=== PATIENT | female | born 2005 ===

== ENCOUNTER 2023-09-17 12:40 | Inpatient (IN) | payer MEDICAID, OTHER ==
[~2023-09-17] VITALS: Ht 157.5 cm; Wt 78.0 kg
[2023-09-17] MEDS ORDERED: PROMETHAZINE HCL 25 MG/ML 1ML IV PRN (13:15)
[2023-09-17] MEDS ORDERED: PHISODERM TOP SOLN 240ML BTL TOP PRN (13:15)
[2023-09-17] MEDS ORDERED: DERMOPLAST 60ML BOTTLE TOP PRN (13:15)
[2023-09-17] MEDS ORDERED: LIDOCAINE 2%HCL (LOCAL ANESTH.) INJ 20ML MDV IJ PRN (13:15)
[2023-09-17] MEDS ORDERED: WITCH HAZEL-GLYCERIN PAD TOP PRN (13:15)
[2023-09-17] MEDS ORDERED: PENICILLIN G POT 5MIL/D5 50ML 50 ML IV ONE (13:15)
[2023-09-17 13:47] LABS: Basophils # (auto) 0 10 ^3/uL (0-0.2); Basophils % (auto) 0.1 % (0.0-2.0); Eosinophils # (auto) 0.1 10 ^3/uL (0-0.8); Eosinophils % (auto) 0.9 % (0.0-7.0); Hematocrit 37.6 % (36.0-46.0); Hemoglobin 12.9 g/dL (12.2-16.2); Lymphocytes # (auto) 1.5 10 ^3/uL (0.4-5.4); Lymphocytes % (auto) 22.3 % (10.0-50.0); Mean Corpuscular Hemoglobin 30.1 pg (28.0-32.0); Mean Corpuscular Hgb Conc. 34.3 g/dL (32.0-36.0); Mean Corpuscular Volume 87.8 fL (80.0-100.0); Monocytes # (auto) 0.6 10 ^3/uL (0-1.3); Monocytes % (auto) 8.9 % (0.0-12.0); Neutrophils # (auto) 4.6 10 ^3/uL (1.6-8.6); Neutrophils % (auto) 67.8 % (37.0-80.0); Nucleated Red Blood Cells % 0.1 %; Red Blood Cells 4.28 10^6/uL (4.0-5.20); Red Cell Distribution Width 13.7 % (11.8-14.3); White Blood Cell 6.8 10^3/uL (4.4-10.8)
[2023-09-17 14:05] LABS: Alanine Aminotransferase 15 U/L (7-40); Albumin 4.1 g/dL (3.2-4.8); Alkaline Phosphatase 214 U/L (46-116); Anion Gap 9 (5-15); Aspartate Aminotransferase 17 U/L (13-40); Bilirubin, Total 0.5 mg/dL (0.2-1.0); Calcium 8.9 mg/dL (8.5-10.1); Carbon Dioxide 22 mmol/L (20-30); Chloride 108 mmol/L (98-107); Glucose 92 mg/dL (74-106); Potassium 3.7 mmol/L (3.5-5.1); Sodium 139 mmol/L (136-145); Total Protein 6.6 g/dL (5.7-8.2)
[2023-09-17 14:06] LABS: INR 0.93 (0.9-1.15); Partial Thromboplastin Time 25.7 SEC (24.5-34.5); Prothrombin Time 9.8 sec (9.3-11.8)
[2023-09-17 14:07] LABS: BUN/Creatinine Ratio 12.5 (10.0-20.0); Blood Urea Nitrogen < 5 mg/dL (9-23)
[2023-09-17] MEDS: miSOPROStol 50 MCG per PRE-CUT 1/2 TAB PO PRN (16:16)
[2023-09-17] MEDS: LACTATED RINGER'S 1,000 ML IV SCH ×2 (16:19→22:20)
[2023-09-17] MEDS ORDERED: PENICILLIN G POTASSIUM 2,500,000 UNITS in D5W 5% 50 ML IV SCH (17:15)
[2023-09-17 17:43] LABS: Urine Bacteria FEW /hpf (None Seen); Urine Blood Negative /uL (Negative); Urine Clarity HAZY (Clear); Urine Color Yellow (Yellow); Urine Mucus FEW (None Seen); Urine Protein, UAD 1+ (Negative); Urine Specific Gravity 1.027 (1.001-1.035); Urine WBC 1 /hpf (0 - 5)
[2023-09-17 18:00] LABS: Amphetamine Screen, Urine Neg (NEGATIVE); Barbiturate Scree,Urine Neg (NEGATIVE); Benzodiazephine Screen, Urine Neg (NEGATIVE); Cannabinoid Screen, Urine Neg (NEGATIVE); Cocaine Screen, Urine Neg (NEGATIVE); Opiate Scree,Urine Neg (NEGATIVE); Phencyclidine Screen, Urine Neg (NEGATIVE)
[2023-09-18] MEDS: miSOPROStol 50 MCG per PRE-CUT 1/2 TAB PO PRN ×2 (00:24→05:27)
[2023-09-18] MEDS ORDERED: ePHEDrine SULFATE 50 MG/ML AMP IV ONE (10:00)
[2023-09-18] MEDS ORDERED: fentaNYL CITRATE 100 MCG/2 ML VL IV ONE (10:00)
[2023-09-18] MEDS ORDERED: LIDOCAINE HCL 2 %PF INJ 10ML AMP IJ ONE (10:00)
[2023-09-18] MEDS ORDERED: NALOXONE HCL 0.4 MG/ML VIAL IV ONE (10:00)
[2023-09-18] MEDS ORDERED: LACTATED RINGER'S 1,000 ML IV ONE (10:00)
[2023-09-18] MEDS: ROPIVACAINE HCL 200 ML EPI SCH ×2 (11:58→20:17)
[2023-09-18] MEDS ORDERED: LACT. RINGERS/OXYTOCIN 20UNITS 500 ML IV ONE ×4 (12:15→23:30)
[2023-09-18] MEDS ORDERED: LACT. RINGERS/OXYTOCIN 20UNITS 1,000 ML IV SCH (12:15)
[2023-09-18] MEDS: LACTATED RINGER'S 1,000 ML IV SCH (20:19)
[2023-09-18] MEDS ORDERED: ONDANSETRON ODT 4 MG TAB PO PRN (23:00)
[2023-09-18] MEDS ORDERED: ACETAMINOPHEN 325 MG TAB PO PRN (23:00)
[2023-09-19] MEDS ORDERED: IBUPROFEN 800 MG TAB PO SCH
[2023-09-19 03:00] VITALS: BP 106/62; PULSE 99; RESP 18; TEMP 98
[2023-09-19 07:12] VITALS: BP 95/53; PULSE 111; RESP 17; TEMP 98.3; O2SAT 96
[2023-09-19 08:07] LABS: RPR Non Reactive (Non Reactive)
[2023-09-19 08:35] LABS: Basophils # (auto) 0.1 10 ^3/uL (0-0.2); Basophils % (auto) 0.4 % (0.0-2.0); Eosinophils # (auto) 0 10 ^3/uL (0-0.8); Eosinophils % (auto) 0.2 % (0.0-7.0); Hematocrit 32.7 % (36.0-46.0); Lymphocytes # (auto) 1.8 10 ^3/uL (0.4-5.4); Lymphocytes % (auto) 10.6 % (10.0-50.0); Mean Corpuscular Hemoglobin 29.5 pg (28.0-32.0); Mean Corpuscular Hgb Conc. 33.7 g/dL (32.0-36.0); Mean Corpuscular Volume 87.6 fL (80.0-100.0); Monocytes # (auto) 1.3 10 ^3/uL (0-1.3); Monocytes % (auto) 7.6 % (0.0-12.0); Neutrophils # (auto) 14.2 10 ^3/uL (1.6-8.6); Neutrophils % (auto) 81.2 % (37.0-80.0); Red Blood Cells 3.74 10^6/uL (4.0-5.20); Red Cell Distribution Width 13.4 % (11.8-14.3); White Blood Cell 17.4 10^3/uL (4.4-10.8)
[2023-09-19] MEDS: IBUPROFEN 600 MG TAB PO PRN ×2 (09:02→20:37)
[2023-09-19 11:00] VITALS: BP 102/53; PULSE 112; RESP 16; TEMP 98.8; O2SAT 97
[2023-09-19] MEDS ORDERED: PREN-96 PO (11:26)
[2023-09-19 14:43] VITALS: BP 100/48; PULSE 94; RESP 17; TEMP 97.8
[2023-09-19 18:50] VITALS: BP 100/54; PULSE 109; RESP 18; TEMP 98.1; O2SAT 96
[2023-09-19] MEDS ORDERED: DOCUSATE SOD 100 MG CAP PO SCH (22:00)
[2023-09-19 23:00] VITALS: BP 111/61; PULSE 104; TEMP 97.1; O2SAT 100
[2023-09-20 03:25] VITALS: BP 100/48; PULSE 109; RESP 18; TEMP 97.8; O2SAT 100
[2023-09-20 06:45] VITALS: BP 115/71; PULSE 84; RESP 16; TEMP 98; O2SAT 96
[2023-09-20] MEDS: IBUPROFEN 600 MG TAB PO PRN (07:12)
[2023-09-20] MEDS ORDERED: MEASLES, MUMPS & RUBELLA VAC(MMRII) 0.5ML SC ONE (07:15)
[2023-09-20] MEDS ORDERED: IBU600T PO ×2 (08:00→08:11)
[2023-09-20 11:01] VITALS: BP 107/62; PULSE 98; RESP 16; TEMP 97.8; O2SAT 97
[2023-09-21 19:07] LABS: Treponema pallidum Ab (FTA-Ab) Non Reactive (Non Reactive)
== END 2023-09-20 14:35 | disposition home or self-care (01) | DRG 560 ==
LOC: LDRP 12:40
PROVIDERS: ADMIT Obstetrics & Gynecology; ATTEND Obstetrics & Gynecology
PROC: 10E0XZZ Delivery of Products of Conception, External Approach (ICD-10-PCS; principal; 2023-09-18)
PROC: 0KQM0ZZ Repair Perineum Muscle, Open Approach (ICD-10-PCS; 2023-09-18)
PROC: 3E0R3BZ Introduction of Anesthetic Agent into Spinal Canal, Percutaneous Approach (ICD-10-PCS; 2023-09-18)
PROC: 00HU33Z Insertion of Infusion Device into Spinal Canal, Percutaneous Approach (ICD-10-PCS; 2023-09-18)
DX: O36.5930 Maternal care for other known or suspected poor fetal growth, third trimester, not applicable or unspecified (principal); Z37.0 Single live birth; O70.1 Second degree perineal laceration during delivery; Z3A.39 39 weeks gestation of pregnancy
CPT/HCPCS: 36415; 59025; 59409; 62282; 76815; 80053; 80307; 81001; 81002; 85025; 85610; 85730; 86592; 86850; 86900; 86901; 90471; 94760; 96360; 96361; 96372; G0378; J2590; J7060

== ENCOUNTER → 2024-07-04 | Outpatient (CLI) | payer MEDICAID ==
[~2024-07-04] MED LIST: IBU600T PO; PREN-96 PO
[2024-07-04 09:55] LABS: Basophils # (auto) 0 10 ^3/uL (0-0.2); Basophils % (auto) 0.5 % (0.0-2.0); Eosinophils # (auto) 0.1 10 ^3/uL (0-0.8); Eosinophils % (auto) 2.1 % (0.0-7.0); Hematocrit 38.5 % (36.0-46.0); Hemoglobin 13.3 g/dL (12.2-16.2); Lymphocytes % (auto) 27.5 % (10.0-50.0); Mean Corpuscular Hemoglobin 30.8 pg (28.0-32.0); Mean Corpuscular Hgb Conc. 34.6 g/dL (32.0-36.0); Monocytes # (auto) 0.5 10 ^3/uL (0-1.3); Neutrophils # (auto) 4.5 10 ^3/uL (1.6-8.6); Neutrophils % (auto) 62.9 % (37.0-80.0); Nucleated Red Blood Cells % 0.1 %; Platelet Count (auto) 249 10^3/uL (140-450); Red Blood Cells 4.33 10^6/uL (4.0-5.20); Red Cell Distribution Width 14.6 % (11.8-14.3); White Blood Cell 7.2 10^3/uL (4.4-10.8)
[2024-07-04 10:35] LABS: Amphetamine Screen, Urine Neg (NEGATIVE); Barbiturate Scree,Urine Neg (NEGATIVE); Benzodiazephine Screen, Urine Neg (NEGATIVE); Cocaine Screen, Urine Neg (NEGATIVE); Opiate Scree,Urine Neg (NEGATIVE)
[2024-07-04 10:36] LABS: Phencyclidine Screen, Urine Neg (NEGATIVE)
[2024-07-04 10:40] LABS: Alanine Aminotransferase 11 U/L (7-40); Alkaline Phosphatase 60 U/L (46-116); Anion Gap 6 (5-15); Aspartate Aminotransferase 14 U/L (13-40); BUN/Creatinine Ratio 10.4 (10.0-20.0); Bilirubin, Total 0.4 mg/dL (0.2-1.0); Blood Urea Nitrogen 5 mg/dL (9-23); Calcium 9.3 mg/dL (8.7-10.4); Carbon Dioxide 23 mmol/L (20-30); Chloride 107 mmol/L (98-107); Cholesterol 229 mg/dL (< 200); Glucose 86 mg/dL (74-106); HDL Cholesterol 61 mg/dL (40-59); LDL Cholesterol 139 mg/dL (< 100); Potassium 4.1 mmol/L (3.5-5.1); Sodium 136 mmol/L (136-145); Triglycerides 241 mg/dL (< 150)
[2024-07-04 10:41] LABS: Total Protein 6.5 g/dL (5.7-8.2)
[2024-07-04 10:50] LABS: Thyroid Stimulating Hormone 2.36 uIU/mL (0.358-3.74)
[2024-07-04 10:58] LABS: Beta HCG, Quantitative 7811.5 mIU/mL (1.5-4.2)
[2024-07-04 11:37] LABS: Cannabinoid Screen, Urine Neg (NEGATIVE)
[2024-07-05 07:06] LABS: RPR Non Reactive (Non Reactive)
[2024-07-05 08:06] LABS: Varicella Zoster IgG Antibody 1093 index (Immune >165)
[2024-07-05 22:06] LABS: Chlamydia Trachomatis, NAA Negative (Negative); Neisseria gonorrhoeae, NAA Negative (Negative)
== END | disposition home or self-care (01) ==
LOC: LAB 09:16
PROVIDERS: ATTEND Obstetrics & Gynecology
DX: Z11.3 Encounter for screening for infections with a predominantly sexual mode of transmission (principal); N39.0 Urinary tract infection, site not specified
CPT/HCPCS: 36415; 80053; 80061; 80307; 83036; 84439; 84443; 84702; 85025; 86592; 86703; 86762; 86787; 86850; 86900; 86901; 87086; 87340

== ENCOUNTER 2024-11-29 14:35 | Observation (INO) | payer MEDICAID ==
--- NOTE | 2024-11-29 16:02 | DVH ---
CLINICAL HISTORY: Post dates COMPARISON: None TECHNIQUE: biophysical profile was performed. Transabdominal sonographic images of the fetus we re obtained. FINDINGS: The fetus is in cephalic position. heart rate measures 141 BPM. Amniotic fluid index measures 13.7 cm. The placenta is fundal/right lateral in position. BPP profile is an overall score of 8/8, with 2/2 points for breathing, with at least one episode of breathing over a 30 second duration during a 30 minute observation, 2/2 points for m ovements, with 3 or more discrete body or limb movements, 2/2 points for tone, with one or more episodes of extremity extension with return to flexion, or opening and closing of hand, and 2/ 2 points for amniotic fluid, with at least 1 pocket of amniotic fluid that measures 2 cm in 2 perpend icular planes. IMPRESSION: BPP score of 8/8.
--- NOTE | 2024-11-30 07:14 | DVHDS2 ---
Physician Discharge Progress N Final Diagnosis: postdates Operations or Procedures: Operations or Procedures nst,sono Condition on Discharge: Good Disposition: Home Discharge Instructions: Diet: Regular Activity: No Restrictions, As Tolerated Medications: na Follow Up Care: Specialist: 2d Discharge Statement: "Patient was advised to return to the ER or call 911 if any headaches, dizziness, shortness of breath, chest pain, abdominal pain, bleeding, fevers, or worsening of medical condition. Patient was counseled about treatment plan, medications, possible side effects, patientverbalized understanding. All questions were answered to the best of my ability. This discharge took greater then 30 minutes in planning, reviewing documentation, counseling the patient, and discussing with other team members." ANA LUISA GARCIA DO Nov 30, 2024 07:13
== END 2024-11-29 16:29 | disposition home or self-care (01) ==
LOC: LDRP 14:35
PROVIDERS: ADMIT Obstetrics & Gynecology; ATTEND Obstetrics & Gynecology
DX: O48.0 Post-term pregnancy (principal); Z3A.40 40 weeks gestation of pregnancy; Z79.899 Other long term (current) drug therapy
CPT/HCPCS: 59025; 76818; 81002; 94760; G0378

== ENCOUNTER 2024-11-30 17:37 | Inpatient (IN) | payer MEDICAID ==
[~2024-11-30] VITALS: Ht 157.5 cm; Wt 84.4 kg
--- NOTE | 2024-11-30 19:10 | DVH ---
EXAM: US BIOPHYSICAL PROFILE HISTORY: contractions and spotting/ post dates COMPARISON: US BIOPHYSICAL PROFILE on DOS: 11/29/24 TECHNIQUE: Multiple transabdominal real-time grayscale sonographic images through the gravid uterus of the fetus with duplex Doppler color flow and M-mode spectral analysis Findings/Impression: Single live intrauterine in vertex presentation with heart rate of 144 bpm. Posterior placenta. Biophysical profile was performed with 2 points for respirations, 2 points for movement, 2 points for tone and 2 points for amniotic fluid index. Biophysical profile score of 8/8. Amniotic fluid is within normal limits with ENDY 10.1 cm and MVP 4.6 cm. Normal ENDY (5-25 cm) Normal MVP (2-8 cm)
[2024-11-30] MEDS ORDERED: LIDOCAINE 2%HCL (LOCAL ANESTH.) INJ 20ML MDV IJ PRN (19:45)
[2024-11-30] MEDS ORDERED: NALBUPHINE HCL 10 MG/1ml INJECTION IV PRN (19:45)
[2024-11-30 20:12] LABS: Urine Bacteria None Seen /hpf (None Seen)
[2024-11-30 20:14] LABS: Basophils # (auto) 0 10 ^3/uL (0-0.2); Basophils % (auto) 0.3 % (0.0-2.0); Eosinophils # (auto) 0.1 10 ^3/uL (0-0.8); Eosinophils % (auto) 0.8 % (0.0-7.0); Hematocrit 40.9 % (36.0-46.0); Hemoglobin 13.9 g/dL (12.2-16.2); Lymphocytes # (auto) 2.4 10 ^3/uL (0.4-5.4); Mean Corpuscular Hemoglobin 30.1 pg (28.0-32.0); Mean Corpuscular Hgb Conc. 33.9 g/dL (32.0-36.0); Mean Corpuscular Volume 88.6 fL (80.0-100.0); Monocytes # (auto) 0.8 10 ^3/uL (0-1.3); Monocytes % (auto) 7.2 % (0.0-12.0); Neutrophils # (auto) 7.5 10 ^3/uL (1.6-8.6); Neutrophils % (auto) 69.7 % (37.0-80.0); Platelet Count (auto) 202 10^3/uL (140-450); Red Blood Cells 4.62 10^6/uL (4.0-5.20); Red Cell Distribution Width 13.9 % (11.8-14.3); White Blood Cell 10.8 10^3/uL (4.4-10.8)
[2024-11-30 20:31] LABS: INR 0.92 (0.9-1.15); Partial Thromboplastin Time 26.8 SEC (24.5-34.5); Prothrombin Time 9.8 sec (9.3-11.8)
[2024-11-30 20:35] LABS: Albumin 4.5 g/dL (3.2-4.8); Anion Gap 8 (5-15); Aspartate Aminotransferase 16 U/L (13-40); Bilirubin, Total 0.6 mg/dL (0.2-1.0); Calcium 9.9 mg/dL (8.7-10.4); Carbon Dioxide 24 mmol/L (20-31); Chloride 104 mmol/L (98-107); Glucose 81 mg/dL (74-106); Potassium 3.7 mmol/L (3.5-5.1); Sodium 136 mmol/L (136-145)
--- NOTE | 2024-11-30 20:36 | DVHHP2 ---
OB CC & HPI Date Date of Admission: Nov 30, 2024 Patient Identification: : 2 Para: 1 EDC: Nov 27, 2024 EGA: 40w 3d Chief Complaints: Reason for admission: active labor Admission Nurse Assessment Rev: Yes History of Present Complaints Ms Blankenship, devonte G2, 1001 with IUP at 40w 3d by LMP c/w 12week ultrasound [facility] and reports spotting and irregular cramping that started in the morning. She reports normal movements, no LOF, no WALL, vision changes or epigastric pain. Past Medical History Cardiac: No pertinent Hx Pulmonary: No pertinent Hx Central Nervous System: No pertinent Hx GI: No pertinent Hx Hemotology/Oncology: No pertinent Hx Hepatobiliary: No pertinent Hx Psychiatric: No pertinent Hx Musculoskeletal: No pertinent Hx Rheumotologic: No pertinent Hx Infectious Disease: No peritnent Hx ENT: No pertinent Hx Renal/: No pertinent Hx Endocrine: No pertinent Hx Dermatology: No pertinent Hx Past Surgical History: No pertinent Hx OB History OB History Care: Good Care Ultrasounds: Normal mid trimester US Obstetrical Complications: None Medical Complications: None Allergies: Coded Allergies: NO KNOWN ALLERGIES (Unverified , 09/17/23) Home Meds Active Scripts Ibuprofen Micronized (MOTRIN TABLET) 600 Mg Tb, 600 MG PO Q6HPRN PRN for PAIN SCALE 1 THRU 6, #40 TAB *Black box warning-NSAIDS can increase risk of AL & hypertension, GI irritation, ulceration, bleed, perferation. Do not use post cardiac surgery. Use short duration/lowest effective dose. Prov:ANDREZ MORALES CNM 09/20/23 Reported Medications Vit W/ Ferrous Fumara ( One Daily) Daily Tab, 1 TAB PO DAILY, #30 TAB 11 Refills 09/19/23 Current Medications Current Medications Medications (Trade) Dose Ordered Sig/Andra Route PRN Reason Start Time Stop Time Status Last Admin Lactated Ringer's 1,000 ml @ 125 mls/hr Q8H IV 11/30/24 19:45 UNV Nalbuphine HCl (Nubain) 10 mg Q4HP PRN IV MODERATE PAIN (4-6 PAIN SCALE) 11/30/24 19:45 UNV Witch Susan (Tucks) 1 pad PRN PRN TOP PERINEAL AREA DISCOMFORT 11/30/24 19:45 UNV Sodium Lauryl Sulfate (Phisoderm) 240 ml PRN PRN TOP PERINEAL AREA DISCOMFORT 11/30/24 19:45 UNV Benzocaine (Dermoplast) 1 applic PRN PRN TOP PERINEAL AREA DISCOMFORT 11/30/24 19:45 UNV Lidocaine HCl (Xylocaine) 20 ml ONCE PRN IJ PERINEAL AREA DISCOMFORT 11/30/24 19:45 UNV Family & Social History Family/Social History Past Family/Social History: Non-pertinent Blood Type: A+ Rubella: immune RPR/VDRL: Negative GBS Status: Negative HBsAG: Negative Review of Systems Constitutional: No symptom reported Ears, Nose, & Throat: No symptom reported Eyes: No symptom reported Pulmonary/Respiratory: No symptom reported Cardiovascular: No symptom reported Gastrointestinal: No symptom reported Genitourinary: No symptom reported Musculoskeletal: No symptom reported Skin: No symptom reported Psychiatric: No symptom reported Endocrine: No symptom reported Hemotologic/Lymphatic: No symptom reported OB Admission Exam Physical Exam HEENT: TMs Normal, Fontanelles Normal, Nasal Mucosa Normal, Eyes non-injected, Oropharynx Normal, PERRLA, Moist Membranes, EOMI Heart: Rhythm Normal Lungs: Clear Abdomen: Non tender Extremities: Normal Reflexes: Normal Cervical Dilatation: 4cm Effacement: 50% Station: -2 Membranes: Intact Heart Rate: 130's Accelerations: Accelerations Present Decelerations: No Decelerations Group Home Variability: Average (6-25) Contractions on Admission: >10 Minutes Apart Date/Time Contractions Began: 11/30/24 Frequency of Contractions: Irregular Duration: <60 Intensity: Mild OB Plan Plan Admitting Diagnosis: IUP @ 40w 3d Labor Category 1 FHR tracing Plan: Expectant Management Other Plan: PLAN: Plan of care discussed with Patient and partner Process, Risks, benefits, of available management options discussed, including starting with expectant management, augmentation if indicated, Internal monitoring of UCs & FHT, AROM, amnioinfusion etc only when indicated Patient agrees to starting with expectant management at this time; other int erventions as indicated Informed Consent obtained Admit to Place for Labor Routine L&D Admission orders EFM per policy Intrauterine resuscitation PRN Encourage ambulation / frequent position change to facilitate labor & descent Labor analgesia PRN Supportive care Anticipate JANET ZEPEDA CNM Nov 30, 2024 20:36
[2024-11-30 20:37] LABS: Alanine Aminotransferase < 9 U/L (7-40); Alkaline Phosphatase 195 U/L (46-116); BUN/Creatinine Ratio 10.4 (10.0-20.0); Blood Urea Nitrogen < 5 mg/dL (9-23)
[2024-11-30 20:41] LABS: Urine Blood Negative /uL (Negative); Urine Clarity Clear (Clear); Urine Color Colorless (Yellow); Urine Protein, UAD Negative (Negative); Urine Specific Gravity 1.004 (1.001-1.035); Urine Squamous Epithelial Cell FEW /hpf (<5); Urine Urobilinogen Normal (Negative); Urine WBC <1 /hpf (0 - 5)
[2024-11-30 20:49] LABS: Amphetamine Screen, Urine Neg (NEGATIVE); Barbiturate Scree,Urine Neg (NEGATIVE); Benzodiazephine Screen, Urine Neg (NEGATIVE); Cannabinoid Screen, Urine Neg (NEGATIVE); Cocaine Screen, Urine Neg (NEGATIVE); Opiate Scree,Urine Neg (NEGATIVE); Phencyclidine Screen, Urine Neg (NEGATIVE)
[2024-11-30] MEDS: PHISODERM TOP SOLN 240ML BTL TOP PRN (23:40)
[2024-11-30] MEDS: WITCH HAZEL-GLYCERIN PAD TOP PRN (23:40)
[2024-11-30] MEDS: DERMOPLAST 60ML BOTTLE TOP PRN (23:40)
[2024-11-30] MEDS: LACTATED RINGER'S 1,000 ML IV SCH (23:42)
[2024-12-01] MEDS ORDERED: TERBUTALINE SULFATE 1 MG/ML 1ML VIAL SC PRN (01:45)
--- NOTE | 2024-12-01 01:56 | DVHPN2 ---
CNM Labor Progress Note Date and Time Seen Date Seen: Dec 01, 2024 Time Seen: 01:35 Subjective Patient reports: No new complaints Monitoring Method Monitoring Method: External Heart Rate Heart Rate Baseline: 135 Heart Rate Variability: Moderate Presence of FHR Accelerations: Yes Presence of FHR Decelerations: No Changes in Trends of Patterns: No Are all 5 Components of the FH: Yes Contractions Contractions Frequency: Other (irregular) Contractions Intensity: Mild Contractions Resting Tone: Relaxed Membranes Membranes: Intact Vaginal Exam Vag Exam Deferred: No Vaginal Exam Dilation: 4 Vaginal Exam Effacement: 70 Vaginal Exam Station: -2 Vaginal Exam Presentation: VTX Vaginal Exam Show: None Medications Medications - Pitocin: No Medication - Epidural: No Lab Results Lab Results Current Medications Medications (Trade) Dose Ordered Sig/Andra Start Time Stop Time Status Last Admin Dose Admin Lactated Ringer's 1,000 ml @ 125 mls/hr Q8H 11/30/24 19:45 12/01/24 05:46 125 MLS/HR Nalbuphine HCl (Nubain) 10 mg Q4HP PRN 11/30/24 19:45 Witch Susan (Tucks) 1 pad PRN PRN 11/30/24 19:45 11/30/24 23:40 1 PAD Sodium Lauryl Sulfate (Phisoderm) 240 ml PRN PRN 11/30/24 19:45 11/30/24 23:40 240 ML Benzocaine (Dermoplast) 1 applic PRN PRN 11/30/24 19:45 11/30/24 23:40 1 APPLIC Lidocaine HCl (Xylocaine) 20 ml ONCE PRN 11/30/24 19:45 Oxytocin 500 ml @ 999 mls/hr Q31M ONCE 12/01/24 02:00 12/01/24 02:30 DC 12/01/24 11:05 999 MLS/HR Oxytocin 500 ml @ 125 mls/hr Q4H ONCE 12/01/24 02:00 12/01/24 05:59 DC 12/01/24 11:06 125 MLS/HR Oxytocin 1,000 ml @ 6 ml/hr Q24H 12/01/24 01:45 12/01/24 08:57 18 ML/HR Terbutaline Sulfate (Brethine Inj) 0.25 mg ONCE PRN 12/01/24 01:45 Naloxone HCl (Narcan) 0.2 mg PRN ONCE 12/01/24 03:30 12/01/24 03:34 DC Ephedrine Sulfate (ePHEDrine SULFATE) 10 mg PRN ONCE 12/01/24 03:30 12/01/24 03:34 DC Lidocaine HCl (Xylocaine-Pf 2% Injection) 1 ml ONCE ONCE 12/01/24 03:30 12/01/24 03:34 DC 12/01/24 04:27 1 ML Lactated Ringer's 500 ml @ 500 mls/hr Q1H ONCE 12/01/24 03:30 12/01/24 04:29 DC Cefazolin Sodium 50 ml @ 100 mls/hr Q8HR 12/01/24 14:00 Ondansetron HCl (Zofran Po) 4 mg Q4HPRN PRN 12/01/24 11:45 Docusate Sodium (Colace Capsule) 200 mg HS 12/01/24 22:00 Laboratory Tests Test 11/30/24 19:59 11/30/24 18:54 Range/Units White Blood Count 10.8 4.4-10.8 10^3/uL Red Blood Count 4.62 4.0-5.20 10^6/uL Hemoglobin 13.9 12.2-16.2 g/dL Hematocrit 40.9 36.0-46.0 % Mean Corpuscular Volume 88.6 80.0-100.0 fL Mean Corpuscular Hemoglobin 30.1 28.0-32.0 pg Mean Corpuscular Hemoglobin Concent 33.9 32.0-36.0 g/dL Red Cell Distribution Width 13.9 11.8-14.3 % Platelet Count 202 140-450 10^3/uL Mean Platelet Volume 8.3 6.9-10.8 fL Neutrophils (%) (Auto) 69.7 37.0-80.0 % Lymphocytes (%) (Auto) 22.0 10.0-50.0 % Monocytes (%) (Auto) 7.2 0.0-12.0 % Eosinophils (%) (Auto) 0.8 0.0-7.0 % Basophils (%) (Auto) 0.3 0.0-2.0 % Neutrophils # (Auto) 7.5 1.6-8.6 10 ^3/uL Lymphocytes # (Auto) 2.4 0.4-5.4 10 ^3/uL Monocytes # (Auto) 0.8 0-1.3 10 ^3/uL Eosinophils # (Auto) 0.1 0-0.8 10 ^3/uL Basophils # (Auto) 0 0-0.2 10 ^3/uL Nucleated Red Blood Cells 0.0 % Prothrombin Time 9.8 9.3-11.8 sec Prothrombin Time INR 0.92 0.9-1.15 Activated Partial Thromboplast Time 26.8 24.5-34.5 SEC Sodium Level 136 136-145 mmol/L Potassium Level 3.7 3.5-5.1 mmol/L Chloride Level 104 98-107 mmol/L Carbon Dioxide Level 24 20-31 mmol/L Anion Gap 8 5-15 Blood Urea Nitrogen < 5 L 9-23 mg/dL Creatinine 0.48 L 0.550-1.02 mg/dL Glomerular Filtration Rate Calc 138 >90 mL/min BUN/Creatinine Ratio 10.4 10.0-20.0 Serum Glucose 81 74-106 mg/dL Calcium Level 9.9 8.7-10.4 mg/dL Total Bilirubin 0.6 0.2-1.0 mg/dL Aspartate Amino Transferase (AST) 16 13-40 U/L Alanine Aminotransferase (ALT) < 9 7-40 U/L Alkaline Phosphatase 195 H 46-116 U/L Total Protein 7.0 5.7-8.2 g/dL Albumin 4.5 3.2-4.8 g/dL Rapid Plasma Reagin Pending Treponema pallidum Ab (TP-PA) Pending Hepatitis C Antibody Negative Negative Urine Color Colorless Yellow Urine Clarity Clear Clear Urine pH 6.0 5.0-9.0 Urine Specific [place] 1.004 1.001-1.035 Urine Protein Negative Negative Urine Ketones Negative Negative Urine Blood Negative Negative /uL Urine Nitrite Negative Negative Urine Bilirubin Negative Negative Urine Urobilinogen Normal Negative mg/dL Urine Leukocyte Esterase Negative Negative /uL Urine RBC None seen 0 - 4 /hpf Urine WBC <1 0 - 5 /hpf Urine Squamous Epithelial Cells Few <5 /hpf Urine Bacteria None seen None Seen /hpf Urine Glucose Normal Normal mg/dL Urine Opiates Screen Neg NEGATIVE Urine Fentanyl Screen Neg NEGATIVE Urine Barbiturates Screen Neg NEGATIVE Urine Phencyclidine Screen Neg NEGATIVE Urine Amphetamines Screen Neg NEGATIVE Urine Benzodiazepines Screen Neg NEGATIVE Urine Cocaine Screen Neg NEGATIVE Urine Cannabinoids Screen Neg NEGATIVE Assessment Assessment IUP at 40w 4d Early Labor Category 1 FHR Tracing Plan Plan Augment labor with oxytocin Continue EFM per policy Intrauterine resuscitation PRN Labor analgesia /anesthesia PRN Encourage frequent position change to facilitate descent labor progress Supportive care Anticipate Plan discussed with: Patient, Spouse JANET GREEN CNM Dec 01, 2024 01:56
[2024-12-01] MEDS ORDERED: NALOXONE HCL 0.4 MG/ML VIAL IV ONE (03:30)
[2024-12-01] MEDS ORDERED: ePHEDrine SULFATE 50 MG/ML AMP IV ONE (03:30)
[2024-12-01] MEDS: LACTATED RINGER'S 500 ML IV ONE (03:30)
[2024-12-01] MEDS ORDERED: ROPIVACAINE HCL 200 ML ONE (03:38)
[2024-12-01] MEDS: LIDOCAINE HCL 2 %PF INJ 10ML AMP IJ ONE ×2 (04:27→04:29)
--- NOTE | 2024-12-01 07:24 | DVHPN2 ---
CNM Labor Progress Note Date and Time Seen Date Seen: Dec 01, 2024 Time Seen: 06:55 Subjective Patient reports: No new complaints Monitoring Method Monitoring Method: External Heart Rate Heart Rate Baseline: 140 Heart Rate Variability: Moderate Presence of FHR Accelerations: Yes Presence of FHR Decelerations: No Are all 5 Components of the FH: Yes Contractions Contractions Frequency: Other (2-4min) Contractions Intensity: Moderate Contractions Resting Tone: Relaxed Membranes Membranes: Intact Vaginal Exam Vag Exam Deferred: No Vaginal Exam Dilation: 7 Vaginal Exam Effacement: 80 Vaginal Exam Station: -1 Vaginal Exam Presentation: VTX Vaginal Exam Show: Large Medications Medications - Pitocin: Yes Medication - Epidural: Yes Lab Results Lab Results Current Medications Medications (Trade) Dose Ordered Sig/Andra Start Time Stop Time Status Last Admin Dose Admin Lactated Ringer's 1,000 ml @ 125 mls/hr Q8H 11/30/24 19:45 12/01/24 05:46 125 MLS/HR Nalbuphine HCl (Nubain) 10 mg Q4HP PRN 11/30/24 19:45 Witch Susan (Tucks) 1 pad PRN PRN 11/30/24 19:45 11/30/24 23:40 1 PAD Sodium Lauryl Sulfate (Phisoderm) 240 ml PRN PRN 11/30/24 19:45 11/30/24 23:40 240 ML Benzocaine (Dermoplast) 1 applic PRN PRN 11/30/24 19:45 11/30/24 23:40 1 APPLIC Lidocaine HCl (Xylocaine) 20 ml ONCE PRN 11/30/24 19:45 Oxytocin 500 ml @ 999 mls/hr Q31M ONCE 12/01/24 02:00 12/01/24 02:30 DC 12/01/24 11:05 999 MLS/HR Oxytocin 500 ml @ 125 mls/hr Q4H ONCE 12/01/24 02:00 12/01/24 05:59 DC 12/01/24 11:06 125 MLS/HR Oxytocin 1,000 ml @ 6 ml/hr Q24H 12/01/24 01:45 12/01/24 08:57 18 ML/HR Terbutaline Sulfate (Brethine Inj) 0.25 mg ONCE PRN 12/01/24 01:45 Naloxone HCl (Narcan) 0.2 mg PRN ONCE 12/01/24 03:30 12/01/24 03:34 DC Ephedrine Sulfate (ePHEDrine SULFATE) 10 mg PRN ONCE 12/01/24 03:30 12/01/24 03:34 DC Lidocaine HCl (Xylocaine-Pf 2% Injection) 1 ml ONCE ONCE 12/01/24 03:30 12/01/24 03:34 DC 12/01/24 04:27 1 ML Lactated Ringer's 500 ml @ 500 mls/hr Q1H ONCE 12/01/24 03:30 12/01/24 04:29 DC Cefazolin Sodium 50 ml @ 100 mls/hr Q8HR 12/01/24 14:00 Ondansetron HCl (Zofran Po) 4 mg Q4HPRN PRN 12/01/24 11:45 Docusate Sodium (Colace Capsule) 200 mg HS 12/01/24 22:00 Laboratory Tests Test 11/30/24 19:59 11/30/24 18:54 Range/Units White Blood Count 10.8 4.4-10.8 10^3/uL Red Blood Count 4.62 4.0-5.20 10^6/uL Hemoglobin 13.9 12.2-16.2 g/dL Hematocrit 40.9 36.0-46.0 % Mean Corpuscular Volume 88.6 80.0-100.0 fL Mean Corpuscular Hemoglobin 30.1 28.0-32.0 pg Mean Corpuscular Hemoglobin Concent 33.9 32.0-36.0 g/dL Red Cell Distribution Width 13.9 11.8-14.3 % Platelet Count 202 140-450 10^3/uL Mean Platelet Volume 8.3 6.9-10.8 fL Neutrophils (%) (Auto) 69.7 37.0-80.0 % Lymphocytes (%) (Auto) 22.0 10.0-50.0 % Monocytes (%) (Auto) 7.2 0.0-12.0 % Eosinophils (%) (Auto) 0.8 0.0-7.0 % Basophils (%) (Auto) 0.3 0.0-2.0 % Neutrophils # (Auto) 7.5 1.6-8.6 10 ^3/uL Lymphocytes # (Auto) 2.4 0.4-5.4 10 ^3/uL Monocytes # (Auto) 0.8 0-1.3 10 ^3/uL Eosinophils # (Auto) 0.1 0-0.8 10 ^3/uL Basophils # (Auto) 0 0-0.2 10 ^3/uL Nucleated Red Blood Cells 0.0 % Prothrombin Time 9.8 9.3-11.8 sec Prothrombin Time INR 0.92 0.9-1.15 Activated Partial Thromboplast Time 26.8 24.5-34.5 SEC Sodium Level 136 136-145 mmol/L Potassium Level 3.7 3.5-5.1 mmol/L Chloride Level 104 98-107 mmol/L Carbon Dioxide Level 24 20-31 mmol/L Anion Gap 8 5-15 Blood Urea Nitrogen < 5 L 9-23 mg/dL Creatinine 0.48 L 0.550-1.02 mg/dL Glomerular Filtration Rate Calc 138 >90 mL/min BUN/Creatinine Ratio 10.4 10.0-20.0 Serum Glucose 81 74-106 mg/dL Calcium Level 9.9 8.7-10.4 mg/dL Total Bilirubin 0.6 0.2-1.0 mg/dL Aspartate Amino Transferase (AST) 16 13-40 U/L Alanine Aminotransferase (ALT) < 9 7-40 U/L Alkaline Phosphatase 195 H 46-116 U/L Total Protein 7.0 5.7-8.2 g/dL Albumin 4.5 3.2-4.8 g/dL Rapid Plasma Reagin Pending Treponema pallidum Ab (TP-PA) Pending Hepatitis C Antibody Negative Negative Urine Color Colorless Yellow Urine Clarity Clear Clear Urine pH 6.0 5.0-9.0 Urine Specific [place] 1.004 1.001-1.035 Urine Protein Negative Negative Urine Ketones Negative Negative Urine Blood Negative Negative /uL Urine Nitrite Negative Negative Urine Bilirubin Negative Negative Urine Urobilinogen Normal Negative mg/dL Urine Leukocyte Esterase Negative Negative /uL Urine RBC None seen 0 - 4 /hpf Urine WBC <1 0 - 5 /hpf Urine Squamous Epithelial Cells Few <5 /hpf Urine Bacteria None seen None Seen /hpf Urine Glucose Normal Normal mg/dL Urine Opiates Screen Neg NEGATIVE Urine Fentanyl Screen Neg NEGATIVE Urine Barbiturates Screen Neg NEGATIVE Urine Phencyclidine Screen Neg NEGATIVE Urine Amphetamines Screen Neg NEGATIVE Urine Benzodiazepines Screen Neg NEGATIVE Urine Cocaine Screen Neg NEGATIVE Urine Cannabinoids Screen Neg NEGATIVE Assessment Assessment IUP at 40w 4d Cat 1 FHR Plan Plan AROM - clear Continue EFM per policy Intrauterine resuscitation PRN Re-position to facilitate descent Supportive care Plan discussed with: Patient, Spouse JANET GREEN CNM Dec 01, 2024 07:24
--- NOTE | 2024-12-01 07:46 | DVHPN2 ---
Chief Complaints Patient reports: No new complaints Nursing reports: No new complaints Objective Medications Current Medications Medications (Trade) Dose Ordered Sig/Andra Route PRN Reason Start Time Stop Time Status Last Admin Benzocaine (Dermoplast) 1 applic PRN PRN TOP PERINEAL AREA DISCOMFORT 11/30/24 19:45 11/30/24 23:40 Lactated Ringer's 1,000 ml @ 125 mls/hr Q8H IV 11/30/24 19:45 12/01/24 05:46 Lidocaine HCl (Xylocaine) 20 ml ONCE PRN IJ PERINEAL AREA DISCOMFORT 11/30/24 19:45 Nalbuphine HCl (Nubain) 10 mg Q4HP PRN IV MODERATE PAIN (4-6 PAIN SCALE) 11/30/24 19:45 Oxytocin 1,000 ml @ 6 ml/hr Q24H IV 12/01/24 01:45 Sodium Lauryl Sulfate (Phisoderm) 240 ml PRN PRN TOP PERINEAL AREA DISCOMFORT 11/30/24 19:45 11/30/24 23:40 Terbutaline Sulfate (Brethine Inj) 0.25 mg ONCE PRN SC Uterine tachysystole 12/01/24 01:45 Witch Susan (Tucks) 1 pad PRN PRN TOP PERINEAL AREA DISCOMFORT 11/30/24 19:45 11/30/24 23:40 Others VE--7CM/90/0 Studies Laboratory Tests 11/30/24 19:59 Test 11/30/24 19:59 Range/Units Serum Glucose 81 74-106 mg/dL Ass/Plan Assessment ACTIVE LABOR Plan CONT WITH ANA LUISA PUTNAM DO Dec 01, 2024 07:46
[2024-12-01] MEDS: LACT. RINGERS/OXYTOCIN 20UNITS 1,000 ML IV SCH (08:57)
[2024-12-01] MEDS: ceFAZolin 1GM/50ML 50 ML IV ONE (10:21)
--- NOTE | 2024-12-01 10:51 | LDN2 ---
Labor and Delivery Note Date 12/01/24 Age 19 2 Para 2 EDC 1-15 EGA 40WKS Diagnosis LABOR Vaginal Delivery: VTX Vacuum Assisted: No Placenta: Spontaneous Sex: Female Apgars 9-9 Nuchal Cord Transected: No Amniotic Fluid: Clear Anesthesia EPIDURAL Episiotomy: No Extension: No EBL 300ML Labs Laboratory Tests 07/04/24 09:35: Hepatitis B Surface Antigen Negative, HIV (1&2) Antibody Negative, Rubella Antibody Positive Blood Bank 11/30/24 19:59: Blood Type A POSITIVE Complications NONE Conditions STABLE Comments/Significant Med Jimy SPEC EXAM NO CXAL LAC ANA LUISA GARCIA DO Dec 01, 2024 10:51
[2024-12-01] MEDS: METHYLERGONOVINE MALEATE 0.2 MG/ML AMP IM ONE (11:02)
[2024-12-01] MEDS: LACT. RINGERS/OXYTOCIN 20UNITS 500 ML IV ONE ×2 (11:05→11:06)
[2024-12-01] MEDS ORDERED: ONDANSETRON ODT 4 MG TAB PO PRN (11:45)
[2024-12-01] MEDS: ceFAZolin 1GM/50ML 50 ML IV SCH (14:00)
[2024-12-01 15:00] VITALS: BP 122/73; PULSE 96; RESP 18; TEMP 98.4; O2SAT 96
[2024-12-01] MEDS: IBUPROFEN 600 MG TAB PO PRN (16:15)
[2024-12-01 19:00] VITALS: BP 116/60; PULSE 90; RESP 18; TEMP 98.2; O2SAT 97
[2024-12-01 19:25] VITALS: BP 116/60; PULSE 90; RESP 18; TEMP 98.2; O2SAT 100
[2024-12-01 23:06] VITALS: BP 99/57; PULSE 96; RESP 18; TEMP 99.1; O2SAT 97
--- NOTE | 2024-12-02 00:36 | DVHPN2 ---
Progress Note Date Seen: Dec 02, 2024 Subjective S: Lochia minimal, fundus firm at U-1. Tolerating regular diet well. Ambulating and voiding well w/o feeling lightheaded or dizzy. Passing flatus but no BM yet. Breast feeding. Contraceptive plan: Nexplanon Desires and requests to be discharged home today vital signs Vital Sign Date Time Temp Pulse Resp B/P (MAP) Pulse Ox O2 Delivery O2 Flow Rate FiO2 12/01/24 23:06 99.1 96 18 99/57 (71) 97 99.1 12/01/24 19:14 Room Air Total Intake and Output 12/01/24 12/01/24 12/02/24 14:59 22:59 06:59 Output Total 600 ml 1100 ml Balance -600 ml -1100 ml medications Current Medications Medications Dose Ordered Sig/Andra Route Start Time Stop Time Status Last Admin Dose Admin Isaias Susan 1 pad PRN PRN TOP 11/30/24 19:45 11/30/24 23:40 1 PAD Sodium Lauryl Sulfate 240 ml PRN PRN TOP 11/30/24 19:45 11/30/24 23:40 240 ML Benzocaine 1 applic PRN PRN TOP 11/30/24 19:45 11/30/24 23:40 1 APPLIC Docusate Sodium 200 mg HS PO 12/01/24 22:00 Ibuprofen 600 mg Q6HP PRN PO 12/01/24 15:45 12/01/24 16:15 600 MG laboratory and microbiology Laboratory Tests 11/30/24 19:59 Test 11/30/24 19:59 Range/Units Serum Glucose 81 74-106 mg/dL Objective O: A&O x3 NAD. Afebrile, VSS Chest: heart and lung sounds normal. Breasts: Nipples intact w/o cracks or soreness Abdomen: normal BS, soft, non-tender, no rebound or guarding, fundus firm @ U- 1, Perineum:- no edema, or erythema, Extremities: no edema or tenderness Lochia - minimal Assessment/Plan 19yo now ppd#2_ s/p doing well. Blood Type: A Rh: Positive Breast feeding and Formula feeding Rubella: Immune Pain control with oral medications Bowel regimen: Increase fluid intake and fiber in diet, Laxative PRN Discharge plan: May discharge home later today if condition remains stable Plan discussed with: Patient, Spouse JANET GREEN CNM Dec 02, 2024 00:36
--- NOTE | 2024-12-02 01:29 | DVHDS2 ---
Obstetrics Discharge Summary Obstetrics Discharge Summary Date of Admission: Nov 30, 2024 Date of Discharge: Dec 02, 2024 Reason For Admission: Onset of Labor Procedures: None Intrapartum Procedures: Spontaneous vaginal deliv Procedures: Antibiotics, Hct/date: (40.9% on 11/30/24), Hgb/date: (13.9g/dL on 11/30/24) Operative Complicat: None Discharge Diagnosis: Term -Delivered Discharge Information: Activity (Unrestricted. Advance as tolerated. No heavy lifting, pushing or straining. Pelvic rest x 6weeks), Diet (Routine regular diet rich in fiber, protein, iron and vitamin C with adequate fluid intake.), Medications (Ibuprofen 600mg every 6 hours as needed for pain. Continue Vitamin and iron), Instructions ( self care instructions given. emergency signs and symptoms including pre-eclampsia precautions and signs of PPD reviewed with patient. Follow up with OB Provider in 1 week), Discharge to (Home) JANET GREEN CNM Dec 02, 2024 01:29
[2024-12-02] MEDS: DOCUSATE SOD 100 MG CAP PO SCH (02:46)
[2024-12-02 03:06] VITALS: BP 108/78; PULSE 89; RESP 20; TEMP 97.8; O2SAT 98
[2024-12-02 06:30] VITALS: BP 108/51; PULSE 75; RESP 18; TEMP 97.6; O2SAT 98
[2024-12-02] MEDS ORDERED: IBU600T PO (09:10)
[2024-12-02 11:26] VITALS: BP 114/66; PULSE 88; RESP 18; TEMP 97.8; O2SAT 98
[2024-12-03 06:06] LABS: RPR Non Reactive (Non Reactive)
== END 2024-12-02 13:45 | disposition home or self-care (01) | DRG 560 ==
LOC: LDRP 17:37 → OBSVTOIN 19:30 → LDRP 19:43
PROVIDERS: ADMIT Obstetrics & Gynecology; ATTEND Obstetrics & Gynecology
PROC: 10E0XZZ Delivery of Products of Conception, External Approach (ICD-10-PCS; principal; 2024-12-01)
PROC: 3E0R3BZ Introduction of Anesthetic Agent into Spinal Canal, Percutaneous Approach (ICD-10-PCS; 2024-12-01)
PROC: 00HU33Z Insertion of Infusion Device into Spinal Canal, Percutaneous Approach (ICD-10-PCS; 2024-12-01)
DX: O48.0 Post-term pregnancy (principal); Z37.0 Single live birth; Z3A.40 40 weeks gestation of pregnancy
CPT/HCPCS: 36415; 59025; 59409; 62282; 76818; 80053; 80307; 81001; 81002; 85025; 85610; 85730; 86592; 86780; 86803; 86850; 86900; 86901; 94760; 96360; 96361; 96365; 96366; G0378; J2590